=== PATIENT | male | born 1960 ===

== ENCOUNTER 2022-03-04 10:43 | Outpatient (CLI) | payer OTHER | END 2022-03-04 10:48 | disposition home or self-care (01) | LOC: RAD 10:43 | PROVIDERS: ATTEND Internal Medicine Pulmonary Disease | DX: J42 Unspecified chronic bronchitis (principal); J45.909 Unspecified asthma, uncomplicated; J45.991 Cough variant asthma ==

== ENCOUNTER 2022-05-14 09:21 | Outpatient (CLI) | payer OTHER | END 2022-05-14 09:31 | disposition home or self-care (01) | LOC: RAD 09:21 | PROVIDERS: ATTEND Family Medicine | DX: M25.572 Pain in left ankle and joints of left foot (principal); M25.512 Pain in left shoulder; M95.8 Other specified acquired deformities of musculoskeletal system ==